=== PATIENT | female | born 1985 | race Caucasian/White ===

== ENCOUNTER 2018-12-15 18:01 | Emergency (ER) | payer MEDICAID ==
[~2018-12-15] VITALS: Ht 160 cm; Wt 68.1 kg
[2018-12-15 18:17] VITALS: BP 135/71; Ht 160 cm; Wt 68.1 kg
== END 2018-12-15 20:25 | disposition home or self-care (01) ==
LOC: ED 18:01
DX: N39.0 Urinary tract infection, site not specified (principal)